=== PATIENT | female | born 1975 | race Asian ===

== ENCOUNTER 2019-01-19 05:37 | Day surgery (SDC) | payer BC ==
[2019-01-19] MEDS ORDERED: CEFAZOLIN 1 GM INJ (06:25)
[2019-01-19] MEDS ORDERED: PROPOFOL 20 ML (06:25)
[2019-01-19] MEDS ORDERED: MIDAZOLAM 1 MG/ML 2 ML INJ (06:26)
[2019-01-19] MEDS ORDERED: ONDANSETRON 4 MG INJ (06:27)
[2019-01-19] MEDS ORDERED: KETOROLAC 30 MG INJ (06:27)
[2019-01-19 07:08] LABS: ADD MAN DIFF? NO
[2019-01-19 07:13] LABS: WHITE BLOOD COUNT 6.5 10^3/ul (4.8-10.8)
[2019-01-19 07:13] LABS: BASOPHILS % 0.6 % (0.0-2.0); EOSINOPHILS # 0.1 10^3/ul (0.0-0.5); HEMATOCRIT 39.9 % (37.0-47.0); HEMOGLOBIN 13.1 g/dl (12.0-16.0); LYMPHOCYTES # 1.9 10^3/ul (0.8-2.9); LYMPHOCYTES % 28.9 % (15.0-51.0); MEAN CORPUSCULAR HEMOGLOBIN 28.8 pg (29.0-33.0); MEAN CORPUSCULAR HGB CONC 32.8 g/dl (32.0-37.0); MEAN CORPUSCULAR VOLUME 87.7 fl (82.0-101.0); MEAN PLATELET VOLUME 9.6 fl (7.4-10.4); MONOCYTE # 0.5 10^3/ul (0.3-0.9); MONOCYTES % 8.3 % (0.0-11.0); NEUTROPHIL # 3.9 10^3/ul (1.6-7.5); NEUTROPHILS % 59.7 % (39.0-77.0); PLATELET COUNT 272 10^3/UL (140-415); RED BLOOD COUNT 4.55 10^6/ul (4.20-5.40)
[2019-01-19] MEDS ORDERED: PHENYLephrine (100 MCG/ML) 10ML SYG (07:28)
[2019-01-19] MEDS ORDERED: ONDANSETRON 4 MG INJ IV (07:30)
[2019-01-19] MEDS ORDERED: OXYCODONE/ACETAMINOPHEN (5/325) TAB PO (07:30)
[2019-01-19] MEDS ORDERED: LACTATED RINGER'S 1,000 ML IV (07:30)
[2019-01-19] MEDS ORDERED: HYDROmorphONE 1 MG/5 ML IV SYRINGE IV (07:30)
[2019-01-19] MEDS: STRONG IODINE 14 ML SOLUTION TOP (08:03)
== END 2019-01-19 10:12 | disposition home or self-care (01) ==
LOC: SDS 05:37
DX: N72 Inflammatory disease of cervix uteri (principal)
CPT/HCPCS: 57522; 85025; 86850; 86900; 86901; 88307